=== PATIENT | male | born 1955 | race Caucasian/White ===

== ENCOUNTER 2023-02-23 02:59 | Emergency (ER) | payer MEDICARE, BC ==
[~2023-02-23 02:59] MED LIST: Albuterol/Ipratropium 3.0-0.5 MG/3 ML Neb Soln NEB ONE; methylPREDNISolone Sodium Succinate 125 MG/2 ML SDV IVPUSH ONE
[2023-02-23 03:32] LABS: BASOPHILS PERCENT AUTO 0.3 % (0.0-1.0); EOSINOPHILS PERCENT AUTO 4.8 % (1.0-3.0); HEMATOCRIT 33.9 % (40.0-54.0); HEMOGLOBIN 9.9 g/dL (14.0-18.0); LYMPHOCYTES PERCENT AUTO 9.6 % (20.5-50.1); MEAN CORPUSCULAR HEMOGLOBIN 26.3 pg (27.0-34.0); MEAN CORPUSCULAR HGB CONC 29.2 g/dL (33.0-35.0); MEAN CORPUSCULAR VOLUME 89.9 fL (80-100); MONOCYTES PERCENT AUTO 9.3 % (2-8); PLATELET COUNT,PLT 359 10^3/uL (150-450); RED BLOOD CELL COUNT 3.77 10^6/uL (4.6-6.2)
[2023-02-23 04:01] LABS: LACTIC ACID 0.4 mmol/L (0.4-2.0)
[2023-02-23 04:08] LABS: A/G RATIO 0.7; ALANINE AMINOTRANSFERASE,ALT 17 U/L (16-63); ALBUMIN 3.7 g/dL (3.4-5.0); ALKALINE PHOSPHATASE 91 U/L (46-116); ANION GAP 6.8 mEq/L (7-13); BILIRUBIN TOTAL 0.3 mg/dL (0.2-1.0); BLOOD UREA NITROGEN,BUN 15 mg/dL (7-18); BUN/CREATININE RATIO 11.6 (No establ ref range); CALCIUM 9.8 mg/dL (8.5-10.1); CARBON DIOXIDE,CO2 40 mmol/L (21-32); CHLORIDE,CL 101 mmol/L (98-107); CREATININE 1.29 mg/dL (0.70-1.30); ESTIMATED GFR 60 mL/min (>=60); GLUCOSE RANDOM 138 mg/dL (70-99); POTASSIUM,K 4.8 mmol/L (3.5-5.1); PROTEIN TOTAL,TP 8.9 g/dL (6.4-8.2); SODIUM,NA 143 mmol/L (136-145); TSH ULTRASENSITIVE 1.89 uIU/mL (0.36-3.74)
[2023-02-23 04:12] LABS: C-REACTIVE PROTEIN < 0.2 mg/dL (0.0-0.9)
[2023-02-23 04:21] LABS: ASPARTATE AMNIOTRANSFERASE,AST 23 U/L (15-37); B-TYPE NATRIURETIC PEPTIDE,BNP 1170 pg/ml (0-100)
[2023-02-23] MEDS ORDERED: Albuterol/Ipratropium 3.0-0.5 MG/3 ML Neb Soln NEB ONE (06:03)
[2023-02-23] MEDS ORDERED: Azithromycin 250 MG Tab PO ONE (06:04)
[2023-02-23 07:56] LABS: O2 DELIVERY DEVICE NASAL CANNULA
[2023-02-23 07:57] LABS: BASE EXCESS ARTERIAL 11 mmol/L ((-2)-(+3)); BICARBONATE,ARTERIAL 37.1 mmol/L (22-26); O2 SATURATION ARTERIAL 85 % (95-100); PCO2 ARTERIAL 63 mmHg (35-45); PH,ARTERIAL 7.39 (7.35-7.45); PO2 ARTERIAL 54 mmHg (70-100)
[2023-02-23 07:59] LABS: ALLEN TEST POSITIVE; O2 FLOW RATE 4.5
== END 2023-02-23 08:00 ==
LOC: DL.ED 02:59
DX: J44.1 Chronic obstructive pulmonary disease with (acute) exacerbation (principal); D64.9 Anemia, unspecified; R77.8 Other specified abnormalities of plasma proteins; E78.00 Pure hypercholesterolemia, unspecified; I10 Essential (primary) hypertension; I25.2 Old myocardial infarction; J44.9 Chronic obstructive pulmonary disease, unspecified; F17.210 Nicotine dependence, cigarettes, uncomplicated; Z91.09 Other allergy status, other than to drugs and biological substances; Z79.82 Long term (current) use of aspirin; Z79.899 Other long term (current) drug therapy; Z20.822 Contact with and (suspected) exposure to COVID-19; Z99.81 Dependence on supplemental oxygen
CPT/HCPCS: 36415; 36600; 71045; 80053; 82803; 83605; 83880; 84145; 84443; 84484; 85025; 85379; 86140; 93005; 93010; 96374; 99285; A9270; J2930; U0002; J7620-GY

== ENCOUNTER 2023-06-26 07:35 | Emergency (ER) | payer MEDICARE, BC ==
[2023-06-26] MEDS ORDERED: Sodium Chloride 0.9% 10 ML Syringe FLUSH PRN (07:36)
[2023-06-26 08:06] LABS: BASOPHILS PERCENT AUTO 0.3 % (0.0-1.0); EOSINOPHILS PERCENT AUTO 4.4 % (1.0-3.0); HEMATOCRIT 35.3 % (40.0-54.0); HEMOGLOBIN 11.3 g/dL (14.0-18.0); LYMPHOCYTES PERCENT AUTO 11.7 % (20.5-50.1); MEAN CORPUSCULAR HEMOGLOBIN 30.5 pg (27.0-34.0); MEAN CORPUSCULAR VOLUME 95.1 fL (80-100); MONOCYTES PERCENT AUTO 12.1 % (2-8); NEUTROPHILS PERCENT AUTO 71.5 % (42.2-75.2); PLATELET COUNT,PLT 266 10^3/uL (150-450); RED BLOOD CELL COUNT 3.71 10^6/uL (4.6-6.2); WHITE BLOOD CELL COUNT,WBC 7.7 10^3/uL (5.0-10.0)
[2023-06-26 08:22] LABS: ALBUMIN 3.5 g/dL (3.4-5.0); ANION GAP 5.9 mEq/L (7-13); BLOOD UREA NITROGEN,BUN 16 mg/dL (7-18); BUN/CREATININE RATIO 15.4 (No establ ref range); CALCIUM 8.9 mg/dL (8.5-10.1); CARBON DIOXIDE,CO2 33 mmol/L (21-32); CHLORIDE,CL 100 mmol/L (98-107); CREATININE 1.04 mg/dL (0.70-1.30); EST CRCL DRUG DOSING (CG) 66.66 mL/min; GLUCOSE RANDOM 87 mg/dL (70-99); POTASSIUM,K 3.9 mmol/L (3.5-5.1); PROTEIN TOTAL,TP 6.9 g/dL (6.4-8.2); SODIUM,NA 135 mmol/L (136-145)
[2023-06-26 08:23] LABS: ALANINE AMINOTRANSFERASE,ALT 18 U/L (16-63); ALKALINE PHOSPHATASE 80 U/L (46-116); ASPARTATE AMNIOTRANSFERASE,AST 20 U/L (15-37); BILIRUBIN TOTAL 0.4 mg/dL (0.2-1.0); LACTIC ACID 0.8 mmol/L (0.4-2.0); LIPASE 55 U/L (16-77)
[2023-06-26 08:24] LABS: ESTIMATED GFR 77 mL/min (>=60)
[2023-06-26 08:30] LABS: B-TYPE NATRIURETIC PEPTIDE,BNP 135 pg/ml (0-100)
[2023-06-26] MEDS ORDERED: Iopamidol 612 MG/ML 100 ML Bottle IVPUSH ONE (08:33)
[2023-06-26 08:56] LABS: CORONAVIRUS COVID-19 NAA NEGATIVE (NEGATIVE); INFLUENZA A NAA NEGATIVE (NEGATIVE); INFLUENZA B NAA NEGATIVE (NEGATIVE); RESPIRATORY SYNCYTIAL VIR NAA NEGATIVE (NEGATIVE)
== END 2023-06-26 11:15 | disposition home or self-care (01) ==
LOC: DL.ED 07:35
DX: J44.9 Chronic obstructive pulmonary disease, unspecified (principal); R91.8 Other nonspecific abnormal finding of lung field; I25.10 Atherosclerotic heart disease of native coronary artery without angina pectoris; I10 Essential (primary) hypertension; I25.2 Old myocardial infarction; F17.210 Nicotine dependence, cigarettes, uncomplicated; Z20.822 Contact with and (suspected) exposure to COVID-19; Z79.82 Long term (current) use of aspirin; Z79.899 Other long term (current) drug therapy; Z79.01 Long term (current) use of anticoagulants; Z91.09 Other allergy status, other than to drugs and biological substances
CPT/HCPCS: 0241U; 36415; 71045; 71260; 80053; 83605; 83690; 83880; 84145; 84484; 85025; 93005; 93010; 99284; 99285; J3490; Q9967

== ENCOUNTER 2023-07-14 12:12 | Emergency (ER) | payer MEDICARE, BC ==
[2023-07-14] MEDS ORDERED: Albuterol/Ipratropium 3.0-0.5 MG/3 ML Neb Soln NEB ONE (12:17)
[2023-07-14] MEDS ORDERED: Magnesium Sulfate/Water 2 GM in Premix Bag 1 BAG IV ONE (12:18)
[2023-07-14] MEDS ORDERED: Dexamethasone 4 MG/ML SDV IVPUSH ONE (12:18)
[2023-07-14 12:28] LABS: BASOPHILS PERCENT AUTO 0.2 % (0.0-1.0); EOSINOPHILS PERCENT AUTO 1.1 % (1.0-3.0); HEMATOCRIT 36.5 % (40.0-54.0); HEMOGLOBIN 12.1 g/dL (14.0-18.0); LYMPHOCYTES PERCENT AUTO 6.4 % (20.5-50.1); MEAN CORPUSCULAR HEMOGLOBIN 31.1 pg (27.0-34.0); MEAN CORPUSCULAR HGB CONC 33.2 g/dL (33.0-35.0); MEAN CORPUSCULAR VOLUME 93.8 fL (80-100); MONOCYTES PERCENT AUTO 12.5 % (2-8); NEUTROPHILS PERCENT AUTO 79.8 % (42.2-75.2); PLATELET COUNT,PLT 276 10^3/uL (150-450); RED BLOOD CELL COUNT 3.89 10^6/uL (4.6-6.2); WHITE BLOOD CELL COUNT,WBC 12.3 10^3/uL (5.0-10.0)
[2023-07-14] MEDS: Sodium Chloride 0.9% 10 ML Syringe FLUSH PRN ×2 (12:38→18:32)
[2023-07-14 12:53] LABS: LACTIC ACID 0.8 mmol/L (0.4-2.0)
[2023-07-14 13:23] LABS: A/G RATIO 0.9; ALANINE AMINOTRANSFERASE,ALT 17 U/L (16-63); ALBUMIN 3.6 g/dL (3.4-5.0); ALKALINE PHOSPHATASE 96 U/L (46-116); ANION GAP 11.2 mEq/L (7-13); ASPARTATE AMNIOTRANSFERASE,AST 20 U/L (15-37); BILIRUBIN TOTAL 0.4 mg/dL (0.2-1.0); BLOOD UREA NITROGEN,BUN 15 mg/dL (7-18); BUN/CREATININE RATIO 13.6 (No establ ref range); C-REACTIVE PROTEIN 8.09 ng/dL (<=0.50); CALCIUM 9.3 mg/dL (8.5-10.1); CARBON DIOXIDE,CO2 32 mmol/L (21-32); CHLORIDE,CL 93 mmol/L (98-107); EST CRCL DRUG DOSING (CG) 66.55 mL/min; ESTIMATED GFR 72 mL/min (>=60); FOLIC ACID > 20.0 ng/mL (8.6-58.9); GLUCOSE RANDOM 105 mg/dL (70-99); MAGNESIUM 1.7 mg/dL (1.8-2.4); PHOSPHORUS 3.2 mg/dL (2.6-4.7); POTASSIUM,K 4.2 mmol/L (3.5-5.1); PROTEIN TOTAL,TP 7.8 g/dL (6.4-8.2); SODIUM,NA 132 mmol/L (136-145)
[2023-07-14] MEDS ORDERED: cefTRIAXone 2 GM Vial IVPUSH ONE (14:02)
[2023-07-14] MEDS ORDERED: Acetaminophen 500 MG Tab PO ONE (14:15)
[2023-07-14] MEDS ORDERED: diphenhydrAMINE 50 MG/ML SDV IVPUSH ONE (18:03)
== END 2023-07-14 19:59 ==
LOC: DL.ED 12:12
DX: R53.1 Weakness (principal); J44.1 Chronic obstructive pulmonary disease with (acute) exacerbation; I25.10 Atherosclerotic heart disease of native coronary artery without angina pectoris; I10 Essential (primary) hypertension; I25.2 Old myocardial infarction; Z95.5 Presence of coronary angioplasty implant and graft; Z79.899 Other long term (current) drug therapy; Z79.82 Long term (current) use of aspirin; Z91.048 Other nonmedicinal substance allergy status
CPT/HCPCS: 36415; 71045; 80053; 82607; 82746; 83605; 83735; 84100; 85025; 86140; 96374; 96375; 99284; 99285; A9270; J0696; J1100; J1200; J3475; J3490; J7620-GY

== ENCOUNTER 2024-02-10 16:18 | Inpatient (IN) | payer MEDICARE, BC ==
[2024-02-10 16:41] LABS: HEMATOCRIT 39.2 % (40.0-54.0); MEAN CORPUSCULAR HEMOGLOBIN 30.7 pg (27.0-34.0); MEAN CORPUSCULAR HGB CONC 33.2 g/dL (33.0-35.0); MEAN CORPUSCULAR VOLUME 92.7 fL (80-100); PLATELET COUNT,PLT 245 10^3/uL (150-450); RED BLOOD CELL COUNT 4.23 10^6/uL (4.6-6.2); WHITE BLOOD CELL COUNT,WBC 14.5 10^3/uL (5.0-10.0)
[2024-02-10 16:47] LABS: BASOPHILS PERCENT AUTO 0.2 % (0.0-1.0); EOSINOPHILS PERCENT AUTO 1.9 % (1.0-3.0); LYMPHOCYTES PERCENT AUTO 9.1 % (20.5-50.1); MONOCYTES PERCENT AUTO 11.6 % (2-8); NEUTROPHILS PERCENT AUTO 77.2 % (42.2-75.2)
[2024-02-10] MEDS: Albuterol/Ipratropium 3.0-0.5 MG/3 ML Neb Soln NEB ONE ×2 (16:53→17:11)
[2024-02-10] MEDS: Morphine 2 MG/ML SYRINGE IVPUSH ONE ×2 (17:05→20:35)
[2024-02-10] MEDS: Magnesium Sulfate/Water 2 GM in Premix Bag 1 BAG IV ONE (17:05)
[2024-02-10] MEDS: methylPREDNISolone Sodium Succinate 125 MG/2 ML SDV IVPUSH ONE (17:06)
[2024-02-10 17:18] LABS: LACTIC ACID 1.9 mmol/L (0.4-2.0)
[2024-02-10 17:21] LABS: A/G RATIO 1.1; ALBUMIN 3.7 g/dL (3.4-5.0); ANION GAP 12.8 mEq/L (7-13); BILIRUBIN TOTAL 0.4 mg/dL (0.2-1.0); BUN/CREATININE RATIO 17.4 (No establ ref range); C-REACTIVE PROTEIN 0.71 ng/dL (<=0.50); CALCIUM 9.5 mg/dL (8.5-10.1); CREATININE 1.15 mg/dL (0.70-1.30); EST CRCL DRUG DOSING (CG) 62.12 mL/min; MAGNESIUM 1.8 mg/dL (1.8-2.4); POTASSIUM,K 3.8 mmol/L (3.5-5.1); PROTEIN TOTAL,TP 7.2 g/dL (6.4-8.2)
[2024-02-10 17:27] LABS: INR 0.9 (0.9-1.2); PROTHROMBIN TIME 9.7 SEC (9.0-12.0); PTT,PARTIAL THROMBOPLSTIN TIME 23.9 SEC (22.0-34.0)
[2024-02-10] MEDS: Azithromycin 500 MG in Sodium Chloride 0.9% 250 ML IV ONE (17:40)
[2024-02-10] MEDS: Sodium Chloride 0.9% 1,000 ML IV ONE (17:40)
[2024-02-10 17:43] LABS: BAND PERCENT MAN 1 %; EOSINOPHILS PERCENT MAN 1 % (1-3); LYMPHOCYTES % ATYPICAL MANUAL 2 %; LYMPHOCYTES PERCENT MAN 9 % (20-50); MONOCYTES PERCENT MAN 11 % (2-8); SEG NEUTROPHILS PERCENT MAN 76 % (42-75)
[2024-02-10] MEDS: Ketorolac 30 MG/ML SDV ONE (17:43)
[2024-02-10] MEDS: Ketorolac 30 MG/ML SDV IVPUSH ONE ×2 (17:43→18:43)
[2024-02-10 18:08] LABS: APPEARANCE,URINE CLEAR (CLEAR); BILIRUBIN,URINE NEGATIVE (NEGATIVE); COLOR,URINE YELLOW (YELLOW); GLUCOSE,URINE NEGATIVE (NEGATIVE); KETONES,URINE NEGATIVE (NEGATIVE); LEUKOCYTE ESTERASE,URINE NEGATIVE (NEGATIVE); NITRITE,URINE NEGATIVE (NEGATIVE); OCCULT BLOOD,URINE NEGATIVE (NEGATIVE); PH,URINE 6.5 (5.0-9.0); PROTEIN,URINE 30 (NEGATIVE); UROBILINOGEN,URINE 0.2 mg/dL (0.2-1.0)
[2024-02-10 18:20] LABS: BACTERIA,URINE FEW /HPF (0-FEW/HPF); EPITHELIAL CELLS,URINE FEW /HPF (NOT SEEN); HYALINE CASTS,URINE FEW; MUCUS,URINE MODERATE /LPF (NOT SEEN); WBC,URINE 0-5 /HPF (0-5/HPF)
[2024-02-10] MEDS: Sodium Chloride 0.9% 10 ML Syringe FLUSH PRN (18:45)
[2024-02-10] MEDS ORDERED: Naloxone 2 MG/2 ML Syringe IVPUSH PRN (20:07)
[2024-02-10] MEDS ORDERED: Ondansetron 4 MG/2 ML SDV IVPUSH PRN (20:26)
[2024-02-10] MEDS ORDERED: Polyethylene Glycol 3350 Powder 17 GM Packet PO PRN (20:26)
[2024-02-10] MEDS ORDERED: Acetaminophen 325 MG Tab PO PRN (20:26)
[2024-02-10] MEDS ORDERED: Albuterol/Ipratropium 3.0-0.5 MG/3 ML Neb Soln NEB PRN (20:26)
[2024-02-10] MEDS ORDERED: Promethazine 25 MG/ML SDV IM PRN (20:26)
[2024-02-10] MEDS ORDERED: Magnesium Hydroxide 400 MG/5 ML Susp 30 ML Cup PO PRN (20:26)
[2024-02-10] MEDS ORDERED: hydrALAZINE 20 MG/ML SDV IVPUSH PRN (20:31)
[2024-02-10] MEDS ORDERED: Metoprolol Tartrate 5 MG/5 ML SDV IVPUSH PRN (20:31)
[2024-02-10] MEDS ORDERED: Flumazenil 0.1 MG/ML 5 ML MDV IVPUSH PRN (20:36)
[2024-02-10] MEDS ORDERED: guaiFENesin/Dextromethorphan 100-10 MG/5 ML Soln 5 ML Cup PO PRN (21:11)
[2024-02-10] MEDS: Ibuprofen 600 MG Tab PO SCH (22:00)
[2024-02-10] MEDS: guaiFENesin 600 MG Tab.ER PO SCH (22:00)
[2024-02-10] MEDS: LORazepam 2 MG/ML SDV IVPUSH ONE (22:01)
[2024-02-10] MEDS: Temazepam 15 MG Cap PO PRN (22:01)
[2024-02-10] MEDS: Pantoprazole 40 MG Vial IVPUSH ONE (22:02)
[2024-02-10] MEDS: Morphine 2 MG/ML SYRINGE ONE (22:03)
[2024-02-10] MEDS: methylPREDNISolone Sodium Succinate 125 MG/2 ML SDV IVPUSH SCH (22:06)
[2024-02-10] MEDS: Sodium Chloride 0.9% 1,500 ML IV SCH (22:31)
[2024-02-10] MEDS: Aminophylline 500 MG in Sodium Chloride 0.9% 500 ML IV SCH (22:31)
[2024-02-10] MEDS: Montelukast 10 MG Tab PO SCH (22:39)
[2024-02-11] MEDS: Ampicillin/Sulbactam Na 1.5 GM in Sodium Chloride 0.9% 100 ML IV SCH
[2024-02-11] MEDS: Iopamidol 755 Mg/ML 100 ML Bottle IVPUSH ONE (02:22)
[2024-02-11] MEDS: Formoterol/Mometasone 200-5 MCG 8.8 GM Inhaler INH SCH (06:26)
[2024-02-11] MEDS: Tiotropium Bromide 4 GM Inhalation Spray (2.5mcg/1 dose; 10 doses) INH SCH (06:27)
[2024-02-11] MEDS: Pantoprazole 40 MG Tab.CR PO SCH (06:27)
[2024-02-11 06:35] LABS: BASOPHILS PERCENT AUTO 0.1 % (0.0-1.0); HEMATOCRIT 37.2 % (40.0-54.0); HEMOGLOBIN 12.4 g/dL (14.0-18.0); LYMPHOCYTES PERCENT AUTO 4.5 % (20.5-50.1); MEAN CORPUSCULAR HEMOGLOBIN 30.8 pg (27.0-34.0); MEAN CORPUSCULAR HGB CONC 33.3 g/dL (33.0-35.0); MEAN CORPUSCULAR VOLUME 92.5 fL (80-100); MONOCYTES PERCENT AUTO 4.1 % (2-8); NEUTROPHILS PERCENT AUTO 91.3 % (42.2-75.2); PLATELET COUNT,PLT 213 10^3/uL (150-450); RED BLOOD CELL COUNT 4.02 10^6/uL (4.6-6.2); WHITE BLOOD CELL COUNT,WBC 11.6 10^3/uL (5.0-10.0)
[2024-02-11 07:07] LABS: ALBUMIN 3.2 g/dL (3.4-5.0); BILIRUBIN TOTAL 0.4 mg/dL (0.2-1.0); BUN/CREATININE RATIO 15.6 (No establ ref range); C-REACTIVE PROTEIN 5.14 ng/dL (<=0.50); CALCIUM 9.1 mg/dL (8.5-10.1); CREATININE 1.41 mg/dL (0.70-1.30); EST CRCL DRUG DOSING (CG) 50.98 mL/min; MAGNESIUM 2.1 mg/dL (1.8-2.4); PROTEIN TOTAL,TP 6.6 g/dL (6.4-8.2)
[2024-02-11 07:20] LABS: A/G RATIO 0.94
[2024-02-11] MEDS ORDERED: Non-Formulary Medication 1 Each (Revefenacin [Yupelri] 175 MCG/3 ML Neb) NEB SCH (09:00)
[2024-02-11] MEDS ORDERED: Enoxaparin 40 MG/0.4 ML Syringe SUBCUT SCH (09:00)
[2024-02-11] MEDS: Aspirin 81 MG Tab.EC PO SCH (09:04)
[2024-02-11] MEDS: Enoxaparin 80 MG/0.8 ML Syringe SUBCUT SCH (09:05)
[2024-02-11] MEDS: Azithromycin 500 MG in Sodium Chloride 0.9% 250 ML IV SCH (09:10)
[2024-02-11] MEDS: Iopamidol 612 MG/ML 100 ML Bottle IVPUSH ONE (10:55)
[2024-02-11] MEDS: oxyCODONE 5 MG Tab PO PRN (13:11)
[2024-02-11] MEDS: Sennosides/Docusate Sodium 50-8.6 MG Tab PO PRN (20:16)
[2024-02-11] MEDS: Morphine 2 MG/ML SYRINGE IVPUSH PRN (20:17)
[2024-02-11] MEDS ORDERED: LORazepam 2 MG/ML SDV IVPUSH PRN (21:46)
[2024-02-12 06:48] LABS: HEMATOCRIT 32.6 % (40.0-54.0); HEMOGLOBIN 10.7 g/dL (14.0-18.0); LYMPHOCYTES PERCENT AUTO 2.3 % (20.5-50.1); MEAN CORPUSCULAR HEMOGLOBIN 30.6 pg (27.0-34.0); MEAN CORPUSCULAR HGB CONC 32.8 g/dL (33.0-35.0); MEAN CORPUSCULAR VOLUME 93.1 fL (80-100); MONOCYTES PERCENT AUTO 1.7 % (2-8); PLATELET COUNT,PLT 240 10^3/uL (150-450); WHITE BLOOD CELL COUNT,WBC 21.2 10^3/uL (5.0-10.0)
[2024-02-12 07:09] LABS: ALBUMIN 2.9 g/dL (3.4-5.0); ANION GAP 13.1 mEq/L (7-13); BILIRUBIN TOTAL 0.3 mg/dL (0.2-1.0); BUN/CREATININE RATIO 21.1 (No establ ref range); C-REACTIVE PROTEIN 4.62 ng/dL (<=0.50); CREATININE 1.33 mg/dL (0.70-1.30); EST CRCL DRUG DOSING (CG) 54.05 mL/min; POTASSIUM,K 4.1 mmol/L (3.5-5.1)
[2024-02-12 07:12] LABS: A/G RATIO 0.94
[2024-02-12] MEDS: Enoxaparin 40 MG/0.4 ML Syringe SUBCUT SCH (09:20)
== END 2024-02-12 10:30 | disposition home or self-care (01) | DRG 205 ==
LOC: DL.ED 16:18 → DL.MS 19:10
PROVIDERS: ADMIT Internal Medicine; ATTEND Internal Medicine
DX: M94.0 Chondrocostal junction syndrome [Tietze] (principal); J96.21 Acute and chronic respiratory failure with hypoxia; I10 Essential (primary) hypertension; J44.1 Chronic obstructive pulmonary disease with (acute) exacerbation; E87.1 Hypo-osmolality and hyponatremia; N17.9 Acute kidney failure, unspecified; I25.2 Old myocardial infarction; E78.00 Pure hypercholesterolemia, unspecified; Z90.49 Acquired absence of other specified parts of digestive tract; Z66 Do not resuscitate; I25.10 Atherosclerotic heart disease of native coronary artery without angina pectoris; D64.9 Anemia, unspecified; E87.8 Other disorders of electrolyte and fluid balance, not elsewhere classified; D72.829 Elevated white blood cell count, unspecified; F17.210 Nicotine dependence, cigarettes, uncomplicated; Z88.8 Allergy status to other drugs, medicaments and biological substances; Z95.5 Presence of coronary angioplasty implant and graft; Z87.01 Personal history of pneumonia (recurrent); Z79.82 Long term (current) use of aspirin; Z99.81 Dependence on supplemental oxygen; Z85.828 Personal history of other malignant neoplasm of skin; Z85.841 Personal history of malignant neoplasm of brain; Z79.899 Other long term (current) drug therapy; Z98.890 Other specified postprocedural states
CPT/HCPCS: 36415; 71045; 80053; 81001; 83605; 83735; 83880; 84145; 84484 ×2; 85025; 85610; 85730; 86140; 93005 ×2; 94640; J0456; J1885; J2270; J2919; J3475; J7030; J7050; 71260; 80061; 93010; 94664; 94760; 96365; 96367; 96375; 99285; 99285-25; A9270-GY; J0280; J0295; J1650; J2060; J2470; J3490; J7040; J7620-GY; Q9967